=== PATIENT | female | born 1975 | race African-American/Black ===

== ENCOUNTER 2018-01-24 16:34 | Emergency (ER) | payer MEDICAID, OTHER ==
[~2018-01-24] VITALS: Ht 180.3 cm; Wt 103.0 kg
[2018-01-24 21:35] VITALS: BP 126/87
== END 2018-01-24 21:41 | disposition home or self-care (01) ==
LOC: ER 19:11
DX: J20.9 Acute bronchitis, unspecified (principal); R03.0 Elevated blood-pressure reading, without diagnosis of hypertension
CPT/HCPCS: 71045; 81025; 99283

== ENCOUNTER 2018-05-10 12:21 | Emergency (ER) | payer MEDICAID ==
[~2018-05-10] VITALS: Ht 180.3 cm; Wt 140.0 kg
[2018-05-10 12:25] VITALS: BP 129/82
== END 2018-05-10 14:10 | disposition left against medical advice (07) ==
LOC: ER 13:58
DX: Z53.21 Procedure and treatment not carried out due to patient leaving prior to being seen by health care provider (principal)

== ENCOUNTER 2018-08-02 09:45 | Emergency (ER) | payer MEDICAID ==
[~2018-08-02] VITALS: Ht 180.3 cm; Wt 118.0 kg
[2018-08-02] MEDS ORDERED: IMIT50 MT (09:56)
[2018-08-02] MEDS ORDERED: FERR325T6 MT (09:56)
[2018-08-02] MEDS ORDERED: IBUPROFEN 600MG TABLET PO ONE (11:45)
[2018-08-02 12:08] VITALS: BP 134/81
[2018-08-02] MEDS ORDERED: DEXAMETHASONE 10 MG/ML VIAL IM ONE (12:45)
== END 2018-08-02 13:14 | disposition home or self-care (01) ==
LOC: ER 09:45
DX: S16.1XXA Strain of muscle, fascia and tendon at neck level, initial encounter (principal); S00.33XA Contusion of nose, initial encounter; S00.83XA Contusion of other part of head, initial encounter; G43.909 Migraine, unspecified, not intractable, without status migrainosus; V43.52XA Car driver injured in collision with other type car in traffic accident, initial encounter; Y93.89 Activity, other specified; Y92.488 Other paved roadways as the place of occurrence of the external cause
CPT/HCPCS: 70160; 72040; 96372; 99283; J1100

== ENCOUNTER 2019-03-02 15:22 | Emergency (ER) | payer MEDICAID ==
[~2019-03-02] VITALS: Ht 185.4 cm; Wt 118.0 kg
[~2019-03-02 15:22] MED LIST: FERR325T6 MT; IMIT50 MT
[2019-03-02] MEDS ORDERED: PNV1TABL50 PO (15:45)
[2019-03-02 16:42] LABS: CLARITY URINE CLEAR (CLEAR); COLOR URINE YELLOW (YELLOW); KETONES URINE TRACE (NEGATIVE); LEUKOCYTE ESTERASE URINE NEGATIVE (NEGATIVE); NITRITE URINE NEGATIVE (NEGATIVE); OCCULT BLOOD URINE NEGATIVE (NEGATIVE); PH URINE 5.5 (4.5-8.0); PROTEIN URINE NEGATIVE (NEGATIVE); SPECIFIC GRAVITY URINE 1.031 (1.005-1.030)
[2019-03-02 17:51] LABS: BASOPHILS % 0.9 % (0.0-2.0); EOSINOPHILS % 3.4 % (0.0-5.0); HEMATOCRIT. 33.1 % (36.0-48.0); HEMOGLOBIN. 10.8 g/dL (12.0-16.0); LYMPHOCYTES % 31.9 % (20.0-50.0); MEAN CORPUSCULAR HEMOGLOBIN 26.8 pg (28.0-32.0); MEAN CORPUSCULAR VOLUME 81.9 fL (81.0-99.0); MEAN PLATELET VOLUME 7.2 fl (7.4-10.4); MONOCYTES % 8.6 % (2.0-8.0); NEUTROPHILS % 55.2 % (40.0-76.0); PLATELET 231 x1000/uL (130-400); RED BLOOD CELL COUNT 4.04 mill/uL (4.2-5.4); RED CELL DISTRIBUTION WIDTH 14.1 % (11.6-14.6)
[2019-03-02 17:53] LABS: CHLORIDE 108 mEq/L (98-107)
[2019-03-02 18:18] LABS: B-HCG QUANTITATIVE 16854 mIU/mL (<3)
[2019-03-02] MEDS ORDERED: IPRATROPIUM/ALBUTEROL 0.5-3(2.5)MG/3ML NEB HHN ONE (18:45)
[2019-03-02] MEDS ORDERED: PREDNISONE 20MG TABLET PO ONE (18:45)
[2019-03-02 20:24] VITALS: BP 142/74
== END 2019-03-02 20:37 | disposition home or self-care (01) ==
LOC: ER 15:22
DX: O20.0 Threatened abortion (principal); O26.891 Other specified pregnancy related conditions, first trimester; R05 Cough; G43.909 Migraine, unspecified, not intractable, without status migrainosus; Z3A.01 Less than 8 weeks gestation of pregnancy; Z29.13 Encounter for prophylactic Rho(D) immune globulin; Z98.890 Other specified postprocedural states
CPT/HCPCS: 36415; 76801; 76817; 80053; 81003; 81025; 84702; 85025; 86850; 86900; 86901; 90384; 94640; 99284; J7620

== ENCOUNTER 2019-03-09 08:44 | Emergency (ER) | payer MEDICAID ==
[~2019-03-09] VITALS: Ht 180.3 cm; Wt 122.0 kg
[~2019-03-09 08:44] MED LIST changes: -IMIT50 MT; +PNV1TABL50 PO
[2019-03-09] MEDS ORDERED: ALBUTEROL (0.083%) 2.5MG/3ML NEB HHN STA (09:21)
[2019-03-09 09:50] LABS: BASOPHILS % 0.9 % (0.0-2.0); HEMATOCRIT. 35.2 % (36.0-48.0); HEMOGLOBIN. 11.5 g/dL (12.0-16.0); LYMPHOCYTES % 29.5 % (20.0-50.0); MEAN CORPUSCULAR HEMOGLOBIN 26.8 pg (28.0-32.0); MEAN CORPUSCULAR VOLUME 81.8 fL (81.0-99.0); MEAN PLATELET VOLUME 7.4 fl (7.4-10.4); MONOCYTES % 7.1 % (2.0-8.0); NEUTROPHILS % 59.5 % (40.0-76.0); PLATELET 280 x1000/uL (130-400); RED CELL DISTRIBUTION WIDTH 14.3 % (11.6-14.6)
[2019-03-09 09:51] LABS: CLARITY URINE CLEAR (CLEAR); COLOR URINE YELLOW (YELLOW); KETONES URINE NEGATIVE (NEGATIVE); LEUKOCYTE ESTERASE URINE 1+ (NEGATIVE); NITRITE URINE NEGATIVE (NEGATIVE); OCCULT BLOOD URINE NEGATIVE (NEGATIVE); PH URINE 6.5 (4.5-8.0); PROTEIN URINE NEGATIVE (NEGATIVE); SPECIFIC GRAVITY URINE 1.016 (1.005-1.030); UROBILINOGEN URINE 0.2 E.U./dL (0.2-1.0)
[2019-03-09 10:04] LABS: CHLORIDE 105 mEq/L (98-107)
[2019-03-09 13:21] VITALS: BP 125/66
== END 2019-03-09 13:28 | disposition home or self-care (01) ==
LOC: ER 08:44
DX: J40 Bronchitis, not specified as acute or chronic (principal); O20.0 Threatened abortion; Z3A.01 Less than 8 weeks gestation of pregnancy; G43.909 Migraine, unspecified, not intractable, without status migrainosus; D64.9 Anemia, unspecified
CPT/HCPCS: 36415; 71045; 76801; 76817; 80053; 81003; 84702; 85025; 86850; 86870; 86900; 86901; 94640; 99284; J7611

== ENCOUNTER 2020-03-16 16:16 | Emergency (ER) | payer MEDICAID, OTHER ==
[~2020-03-16] VITALS: Ht 180.3 cm; Wt 125.0 kg
[2020-03-16] MEDS ORDERED: RHO(D) IMMUNE GLOBULIN 300 MCG/SYR IM ONE (18:15)
[2020-03-16 18:16] LABS: BASOPHILS % 0.8 % (0.0-2.0); EOSINOPHILS % 1.2 % (0.0-5.0); HEMATOCRIT. 35.3 % (36.0-48.0); HEMOGLOBIN. 11.4 g/dL (12.0-16.0); LYMPHOCYTES % 32.1 % (20.0-50.0); MEAN CORPUSCULAR HEMOGLOBIN 25.3 pg (28.0-32.0); MEAN CORPUSCULAR VOLUME 78.5 fL (81.0-99.0); MEAN PLATELET VOLUME 7.6 fl (7.4-10.4); MONOCYTES % 6.1 % (2.0-8.0); NEUTROPHILS % 59.8 % (40.0-76.0); PLATELET 289 x1000/uL (130-400); RED CELL DISTRIBUTION WIDTH 15.4 % (11.6-14.6)
[2020-03-16 18:20] LABS: CHLORIDE 103 mEq/L (98-107)
[2020-03-16 18:45] LABS: B-HCG QUANTITATIVE 14301 mIU/mL (<3)
[2020-03-16 21:40] VITALS: BP 130/69
== END 2020-03-16 22:10 | disposition home or self-care (01) ==
LOC: ER 16:16
DX: O20.0 Threatened abortion (principal); Z3A.01 Less than 8 weeks gestation of pregnancy; D64.9 Anemia, unspecified; G43.909 Migraine, unspecified, not intractable, without status migrainosus; Z98.890 Other specified postprocedural states
CPT/HCPCS: 36415; 76801; 80053; 81025; 84702; 85025; 86850; 86900; 90384; 93005; 99285

== ENCOUNTER 2020-04-24 23:47 | Emergency (ER) | payer MEDICAID ==
[~2020-04-24] VITALS: Ht 180.3 cm; Wt 125.0 kg
[2020-04-25] MEDS ORDERED: ASPIRIN 81MG TABLET PO ONE (01:00)
[2020-04-25 01:37] LABS: EOSINOPHILS % 2.3 % (0.0-5.0); HEMOGLOBIN. 11.9 g/dL (12.0-16.0); MEAN CORPUSCULAR HEMOGLOBIN 25.4 pg (28.0-32.0); MEAN CORPUSCULAR VOLUME 78.8 fL (81.0-99.0); MEAN PLATELET VOLUME 7.1 fl (7.4-10.4); MONOCYTES % 6.2 % (2.0-8.0); NEUTROPHILS % 52.5 % (40.0-76.0); PLATELET 329 x1000/uL (130-400); RED BLOOD CELL COUNT 4.69 mill/uL (4.2-5.4); RED CELL DISTRIBUTION WIDTH 15.4 % (11.6-14.6)
[2020-04-25 01:41] LABS: CHLORIDE 104 mEq/L (98-107)
[2020-04-25] MEDS ORDERED: IOHEXOL-300 100 ML BOTTLE ONE (04:33)
[2020-04-25] MEDS ORDERED: ACETAMINOPHEN 325MG TABLET PO ONE (07:15)
[2020-04-25 09:28] VITALS: BP 160/77
== END 2020-04-25 09:48 | disposition home or self-care (01) ==
LOC: ER 23:52
DX: T14.8XXA Other injury of unspecified body region, initial encounter (principal); D25.9 Leiomyoma of uterus, unspecified; K57.90 Diverticulosis of intestine, part unspecified, without perforation or abscess without bleeding; Z98.890 Other specified postprocedural states; X58.XXXA Exposure to other specified factors, initial encounter; Y93.89 Activity, other specified; Y92.89 Other specified places as the place of occurrence of the external cause; Y99.8 Other external cause status
CPT/HCPCS: 36415; 71045; 74177; 76830; 76856; 80053; 81025; 83880; 84484; 85025; 93005; 99285; Q9967; Z7610

== ENCOUNTER 2021-01-11 22:28 | Emergency (ER) | payer MEDICAID ==
[~2021-01-11] VITALS: Ht 180.3 cm; Wt 123.0 kg
[2021-01-12] MEDS ORDERED: ALBU18HF2 IH (00:16)
[2021-01-12 00:22] VITALS: BP 130/80
== END 2021-01-12 00:23 | disposition home or self-care (01) ==
LOC: ER 22:28
DX: Z76.0 Encounter for issue of repeat prescription (principal); G43.909 Migraine, unspecified, not intractable, without status migrainosus; J40 Bronchitis, not specified as acute or chronic; D64.9 Anemia, unspecified
CPT/HCPCS: 99281